=== PATIENT | male | born 1965 | race Caucasian/White ===

== ENCOUNTER 2018-11-19 11:11 | Inpatient (IN) ==
[2018-11-19] MEDS ORDERED: IBUPROFEN 600 MG TABLET PO PRN (11:54)
[2018-11-19] MEDS ORDERED: SENNA 8.6 MG TABLET PO PRN (11:54)
[2018-11-19] MEDS ORDERED: ONDANSETRON 4 MG/2 ML VIAL IV PRN (11:54)
[2018-11-19] MEDS ORDERED: LORazepam 2 MG/1 ML VIAL IV PRN ×2 (11:54→11:56)
[2018-11-19] MEDS ORDERED: ALUMINUM/MAGNES/SIMETH MAX STR 30 ML UDCUP PO PRN (11:54)
[2018-11-19] MEDS ORDERED: BISACODYL 10 MG SUPP RECTAL PRN (11:54)
[2018-11-19] MEDS ORDERED: NICOTINE 21 MG/24 HR PATCH TRANSDERM PRN (11:54)
[2018-11-19] MEDS ORDERED: traZODone 50 MG TABLET PO PRN (11:54)
[2018-11-19] MEDS ORDERED: ACETAMINOPHEN 500 MG TABLET PO PRN (11:54)
[2018-11-19] MEDS ORDERED: LOPERAMIDE 2 MG CAPSULE PO PRN (11:54)
[2018-11-19] MEDS ORDERED: ONDANSETRON 4 MG TABLET PO PRN (11:54)
[2018-11-19] MEDS ORDERED: HydrOXYzine PAMOATE 25 MG CAPSULE PO PRN (11:56)
[2018-11-19] MEDS ORDERED: METHOCARBAMOL 750 MG TABLET PO PRN (11:56)
[2018-11-19] MEDS ORDERED: DICYCLOMINE 10 MG CAPSULE PO PRN (11:56)
[2018-11-19] MEDS ORDERED: THIAMINE INJ 100 MG, FOLIC ACID INJ 1 MG, MULTIVITAMIN INJ 10 ML in SODIUM CHLORIDE 0.9... IV ONE (11:56)
[2018-11-19 13:19] LABS: Basophils % 0.6 % (0.0-0.8); Eosinophils # 0.4 10*3/uL (0.0-0.87); Eosinophils % 5.6 % (0.00-10.9); Hematocrit 47.8 VOL% (42.0-52.0); Hemoglobin 16.3 GM/DL (14.0-18.0); Immature Granulocytes % 0.5 %; Immature Granulocytes Absolute 0.03 #; Lymphocytes # 1.1 10*3/uL (1.4-4.0); Lymphocytes % 17.3 % (21.2-54.2); Mean Corpuscular HGB Conc 34.1 GM/DL (32-36); Mean Corpuscular Volume 95.6 FL (87-102); Mean Platelet Volume 11.1 FL (9.6-12.0); Monocytes % 9.4 % (1.7-12.7); Neutrophils % 66.6 % (38.7-73.9); Platelet Count 184 T/CUMM (130-400); Red Cell Distribution Width 12.9 % (9.3-17.3); White Blood Count 6.6 T/CUMM (4-12)
[2018-11-19 13:35] LABS: INR 0.9
[2018-11-19 13:36] LABS: Alanine Aminotransferase 34 U/L (16-61); Albumin 3.8 G/DL (3.4-5.0); Alkaline Phosphatase 93 U/L (45-117); Amylase 38 U/L (25-115); Aspartate Amino Transferase 16 U/L (0-37); Blood Urea Nitrogen 16 MG/DL (7-18); Calcium 9.2 MG/DL (8.5-10.1); Glucose 103 MG/DL (74-106); Total Protein 7.4 G/DL (6.4-8.3)
[2018-11-19] MEDS ORDERED: ENOXAPARIN 40 MG/0.4 ML SYRINGE SUBCUT SCH (15:30)
[2018-11-19] MEDS: SERTRALINE 50 MG TABLET PO SCH (15:51)
[2018-11-19] MEDS: LISINOPRIL/HCTZ 20-25 MG TABLET PO SCH (15:51)
[2018-11-19] MEDS: amLODIPine 5 MG TABLET PO SCH (15:51)
[2018-11-19] MEDS: chlordiazePOXIDE 25 MG CAPSULE PO SCH ×2 (16:02→19:04)
[2018-11-19] MEDS: ENOXAPARIN 40 MG/0.4 ML SYRINGE SUBCUT SCH (20:39)
[2018-11-19] MEDS: hydrALAZINE 20 MG/1 ML VIAL IV PRN (20:40)
[2018-11-19] MEDS: MIRTAZAPINE 15 MG TABLET PO SCH (23:37)
[2018-11-19 23:55] LABS: Apearance,Urine CLEAR (Clear); Bilirubin,Urine Negative (Negative); Blood, Urine Negative (Negative); Glucose,Urine (UA) Negative (Negative); Hyaline Casts,Urine 3 /LPF (0-3); Ketones,Urine Negative (Negative); Mucus,Urine Occasional /LPF (Occasional); Nitrite,Urine Negative (Negative); Protein,Urine Negative; RBC,Urine 1 /HPF (0-4); Squamous Epithelial Cell,Urine Occasional /HPF (0-10); Urine Color Yellow (Yellow); Urine Specific Gravity 1.019 (1.001-1.035); Urine Urobilinogen < 2.0 EU/DL (0.2-1.0); WBC,Urine 1 /HPF (0-6)
[2018-11-20] MEDS: chlordiazePOXIDE 25 MG CAPSULE PO SCH ×4 (01:24→20:12)
[2018-11-20 02:14] LABS: Barbiturates Screen,Urine Negative (Negative); Benzodiazepines Screen,Urine Negative (Negative); Cannabinoid Screen,Urine Negative (Negative); Opiate Screen,Urine Negative (Negative); Phencyclidine Screen,Urine Negative (Negative)
[2018-11-20] MEDS: MULTIVITAMIN (CENTRUM) TABLET PO SCH (09:12)
[2018-11-20] MEDS: FOLIC ACID 1 MG TABLET PO SCH (09:12)
[2018-11-20] MEDS: SERTRALINE 50 MG TABLET PO SCH (09:12)
[2018-11-20] MEDS: LISINOPRIL/HCTZ 20-25 MG TABLET PO SCH (09:12)
[2018-11-20] MEDS: amLODIPine 5 MG TABLET PO SCH (09:12)
[2018-11-20] MEDS: hydrALAZINE 20 MG/1 ML VIAL IV PRN (12:01)
[2018-11-20] MEDS: MIRTAZAPINE 15 MG TABLET PO SCH (21:44)
[2018-11-20] MEDS: ENOXAPARIN 40 MG/0.4 ML SYRINGE SUBCUT SCH (21:44)
[2018-11-21] MEDS: chlordiazePOXIDE 25 MG CAPSULE PO SCH ×3 (04:47→20:17)
[2018-11-21] MEDS: amLODIPine 5 MG TABLET PO SCH (08:16)
[2018-11-21] MEDS: FOLIC ACID 1 MG TABLET PO SCH (08:16)
[2018-11-21] MEDS: MULTIVITAMIN (CENTRUM) TABLET PO SCH (08:16)
[2018-11-21] MEDS: SERTRALINE 50 MG TABLET PO SCH (08:16)
[2018-11-21] MEDS: LISINOPRIL/HCTZ 20-25 MG TABLET PO SCH (08:16)
[2018-11-21] MEDS: ENOXAPARIN 40 MG/0.4 ML SYRINGE SUBCUT SCH (20:18)
[2018-11-21] MEDS: MIRTAZAPINE 15 MG TABLET PO SCH (21:46)
[2018-11-22] MEDS: chlordiazePOXIDE 25 MG CAPSULE PO SCH (05:19)
[2018-11-22 07:56] VITALS: BP 142/100
== END 2018-11-22 08:15 | disposition home or self-care (01) | DRG 897 ==
LOC: SUATTDRO 11:55 → N.4E 11:55
PROVIDERS: ADMIT Internal Medicine; ATTEND Internal Medicine Infectious Disease